=== PATIENT | female | born 1990 | race American Indian/Alaskan Native ===

== ENCOUNTER 2021-04-12 10:40 | Outpatient (CLI) | payer BC ==
--- NOTE | 2021-04-14 18:07 | Ultrasound Report ---
LEFT DIGITAL DIAGNOSTIC MAMMOGRAM WITH CAD 04/12/2021 LEFT COMPLETE BREAST ULTRASOUND INDICATION: The patient reports generalized pain in the left breast. She also reports a skin lesion o n the left breast at the 3:00 position TECHNIQUE: Digital left mammographic imaging was performed. Complete ultrasound of all four (4) quad rants was performed. This examination was interpreted with the benefit of Computer-Aided Detection (C AD) analysis. COMPARISON: No relevant prior studies are available for comparison. FINDINGS: Breast Density: There are scattered areas of fibroglandular density. MAMMOGRAPHIC FINDINGS: There is no evidence of dominant mass, suspicious calcifications or architectu ral distortion in the left breast. There is no focal abnormality to account for the patient's general ized left breast pain. ULTRASOUND FINDINGS: Complete sonographic evaluation of all 4 quadrants and retroareolar region was p erformed. Sonographic evaluation of the patient's area of clinical concern for the skin lesion demonstrates a s ubtle hypoechoic focus within the skin measuring a maximum of 0.7 cm. This finding demonstrates no po sterior shadowing. IMPRESSION: 1. No mammographic or sonographic abnormality to account for the patient's left breast pain. Clinica l correlation is recommended. 2. Superficial skin lesion at the 3:00 position as described. Clinical correlation is recommended for this finding. Follow up recommendation: Clinical exam BI-RADS Category 2: BENIGN. A "normal" or negative report should not discourage follow up or biopsy of a clinically significant f inding. A written summary of these findings will be mailed to the patient. The patient will be entered into a mammography reporting system which will generate a reminder letter for the patient's next appointmen t at the appropriate interval. According to the [employer], yearly mammograms are recommended starting at age 40 and continuing as long as a woman is in good health. Breast MRI is recommended for women with an alexa roximately 20-25% or greater lifetime risk of breast cancer, including women with a strong family his tory of breast or ovarian cancer and women who have been treated for Hodgkin's disease. Signer Name: Chelsea Álvarez MD Signed: 04/14/2021 6:03 PM Workstation Name: [email or web address]
== END 2021-04-12 10:41 | disposition home or self-care (01) ==
LOC: US 10:40
PROVIDERS: ATTEND Obstetrics & Gynecology
DX: N60.19 Diffuse cystic mastopathy of unspecified breast (principal); R92.8 Other abnormal and inconclusive findings on diagnostic imaging of breast